=== PATIENT | female | born 1950 | race Asian ===

== ENCOUNTER 2021-07-26 08:35 | Inpatient (IN) | payer MEDICARE, OTHER ==
[~2021-07-26] VITALS: Ht 144.8 cm; Wt 49.9 kg
[2021-07-26] VITALS (42 sets, daily range): BP systolic 36–166; BP diastolic 18–111
[2021-07-26] MEDS ORDERED: VALP250S4 GT (08:56)
[2021-07-26] MEDS ORDERED: ACET-868 GT ×2 (08:56)
[2021-07-26] MEDS ORDERED: DOCU250C14 GT (08:56)
[2021-07-26] MEDS ORDERED: ATOR10TA GT (08:56)
[2021-07-26] MEDS ORDERED: MAG30ORA GT (08:56)
[2021-07-26] MEDS ORDERED: IPRA0.2S9 IH (08:56)
[2021-07-26] MEDS ORDERED: LANS30CA56 GT (08:56)
[2021-07-26] MEDS ORDERED: NUT.237L67 GT (08:56)
[2021-07-26] MEDS ORDERED: LORA10TA7 GT (08:56)
[2021-07-26] MEDS ORDERED: ALBU2.5V38 IH (08:56)
[2021-07-26] MEDS ORDERED: ASCO-352 GT (08:56)
[2021-07-26] MEDS ORDERED: MULT-447 GT (08:56)
[2021-07-26] MEDS ORDERED: QUET25TA GT (08:56)
[2021-07-26] MEDS ORDERED: MAGN400O6 GT (08:56)
[2021-07-26] MEDS ORDERED: FLUT16SP (08:56)
[2021-07-26] MEDS ORDERED: CHOL100062 PO (08:56)
[2021-07-26] MEDS ORDERED: BISA10SU11 RC (08:56)
[2021-07-26] MEDS ORDERED: MEMA10TA GT (08:56)
[2021-07-26] MEDS ORDERED: VANCOMYCIN 1 GM in IV D5W 250 ML IV ONE (09:00)
[2021-07-26] MEDS ORDERED: IV NS 0.9% 2,000 ML IV ONE (09:00)
[2021-07-26] MEDS ORDERED: PIPERACILLIN /TAZOBACTAM 3.375 G in IV D5W 50 ML IV ONE (09:00)
--- NOTE | 2021-07-26 09:00 | NUR ---
Mel from care facility, fever/low bp and low 02 sat noted by staff. Connected to the monitor and pulse ox. Kept comfortable, will continue to monitor accordingly.
--- NOTE | 2021-07-26 09:02 | NUR ---
MOVE SHEET SUBMITTED AND CALLED FOR TELE BED.
[2021-07-26 09:12] LABS: BILIRUBIN,URINE SMALL (NEGATIVE); COLOR,URINE YELLOW (YELLOW); LEUKOCYTE ESTERASE ,URINE Moderate (NEGATIVE); NITRITE, URINE Negative (NEGATIVE); PH,URINE 5.5 (5.0-8.0); PROTEIN,URINE 30 mg/dl (NEGATIVE); UGLUCOSE Negative (NEGATIVE); UROBILINOGEN,URINE 0.2 EU/dL (0.2)
--- NOTE | 2021-07-26 09:25 | NUR ---
ABNORMAL LAB RESULTS: LACTIC ACID - 2.1; TROP- 0.806 DR. GILLETTE IS AWARE
[2021-07-26 09:26] LABS: BACTERIA,URINE 2+ /HPF (None Seen); RBC,URINE 21-50 /HPF (0-2); SQUAMOUS EPITHELIAL CELL,UR Few /HPF (None Seen); WBC,URINE 51-80 /HPF (0-3)
[2021-07-26 09:28] LABS: ALANINE AMINOTRANSFERASE 90 U/L (12-78); ALKALINE PHOSPHATASE 60 U/L (46-116); ASPARTATE AMINOTRANSFERASE 98 U/L (15-37); BILIRUBIN,DIRECT 0.1 mg/dL (0.0-0.2); BILIRUBIN,TOTAL 0.2 mg/dL (0.2-1.0); CALCIUM, SERUM 6.6 mg/dL (8.5-10.1); CARBON DIOXIDE 21 mmol/L (21-32); GLUCOSE 159 mg/dL (74-106); POTASSIUM 3.3 mmol/L (3.5-5.1); TOTAL PROTEIN, SERUM 5.8 g/dL (6.4-8.2)
[2021-07-26 09:31] LABS: ALBUMIN 1.3 g/dL (3.4-5.0); CHLORIDE 133 mmol/L (98-107); SODIUM SERUM 166 mmol/L (136-145); UREA NITROGEN, BLOOD 116 mg/dL (7-18)
--- NOTE | 2021-07-26 09:31 | NUR ---
LAB CALLED DR. GILLETTE INFORMED SODIUM 166 CHLORIDE 133 BUN 116 ALBUMIN 1.3
[2021-07-26 09:38] LABS: BASOPHILS % (AUTO) 0.5 % (0.0-2.0); EOSINOPHILS % (AUTO) 0.1 % (0.0-6.0); HEMATOCRIT 27 % (33-45); HEMOGLOBIN 8.7 g/dL (11.5-14.8); LYMPHOCYTES # (AUTO) 1.4 K/uL (0.8-4.8); LYMPHOCYTES % (AUTO) 16.3 % (20.0-44.0); MEAN CORPUSCULAR HGB CONC 32 g/dl (31.0-36.0); MEAN CORPUSCULAR VOLUME 101 fL (82-100); MONOCYTES # (AUTO) 0.6 K/uL (0.1-1.30); MONOCYTES % (AUTO) 7.2 % (2.0-12.0); NEUTROPHILS # (AUTO) 6.4 K/uL (1.8-8.9); NEUTROPHILS % (AUTO) 75.9 % (43.0-81.0); PLATELET COUNT (AUTO) 236 K/uL (150-450); RED BLOOD CELL COUNT(AUTO) 2.72 MIL/uL (4.0-5.2); WHITE BLOOD COUNT (AUTO) 8.5 K/uL (4.3-11.0)
[2021-07-26] MEDS ORDERED: ENOXAPARIN SODIUM 40 MG/0.4 ML DISP.SYRIN SQ ONE ×2 (09:40→10:00)
[2021-07-26 10:03] LABS: D-DIMER 2.08 mg/L(FEU (0.17-0.50)
[2021-07-26] MEDS ORDERED: NOREPINEPHRINE 8 MG in IV NS 0.9% 250 ML IV ONE (10:30)
[2021-07-26 10:38] LABS: CREATINE KINASE, TOTAL 687 U/L (26-192); FERRITIN 3239 ng/mL (8-388)
[2021-07-26 10:47] LABS: C-REACTIVE PROTEIN 16.3 mg/dL (0.0-0.9)
--- NOTE | 2021-07-26 11:41 | NUR ---
[facility] CALLED PUBLIC INFORMATION COORDINATOR PAGED.
--- NOTE | 2021-07-26 14:47 | NUR ---
report given to Gia MONSIVAIS for yaakov.
[2021-07-26] MEDS ORDERED: Z GUARD REMEDY 2 OZ OINT TP PRN (15:00)
[2021-07-26] MEDS ORDERED: ONDANSETRON HCL/PF 4 MG/2 ML VIAL IVP PRN (15:00)
[2021-07-26] MEDS ORDERED: ACETAMINOPHEN 650 MG/SUPP.RECT RC PRN (15:00)
[2021-07-26] MEDS ORDERED: NOREPINEPHRINE 32 MG in IV NS 0.9% 218 ML IV PRN (15:00)
--- NOTE | 2021-07-26 15:10 | NUR ---
RN NOTES PATIENT ADMITTED FROM ER 70Y/OLD FEMALE ON DX OF SEPTIC SHOCK, UTI, LEW, HYPERNATREMIA. Patient confused contracted, t-99.7F. patient on Levophed drip 0.4 mcg/kg/hr. patient has RIJ three lumen catheter, flashing well, and RAC #318G. intact. [place] draining poor output. skin assessment done , picture taken, wound consult triggered. patient has gt intact. patient total care. assist turn and reposition q 2 hr. will follow up.
--- NOTE | 2021-07-26 15:18 | NUR ---
wheeled patient via gurney accompanied by RN adn emt in no distress. RN assigned at bedside to assume care.
[2021-07-26] MEDS: IV D5/0.45 NACL 1,000 ML IV PRN (15:46)
[2021-07-26] MEDS: NOREPINEPHRINE 32 MG in IV NS 0.9% 218 ML IV PRN (16:11)
[2021-07-26] MEDS ORDERED: PHENYLEPHRINE 100 MG in IV NS 0.9% 240 ML IV PRN (16:30)
[2021-07-26 16:54] LABS: ABG BASE EXCESS -7.3 mmol/L; ABG OXYGEN SATURATION 98.5 % (92.0-98.5); ABG PCO2 21.8 mmHg (35.0-45.0); ABG PH 7.456 (7.350-7.450); ABG PO2 137.5 mmHg (75.0-100.0); AaDO2 338.2 mmHg; COHb 0.3 % (0.5-1.5); MetHb 0.1 % (0.0-1.5); O2Hb 98.1 % (94.0-97.0); SITE, ABG Right Radial; VENT MODE, BG 8L SIMPLE MASK
--- NOTE | 2021-07-26 17:07 | NUR ---
rn notes administered Tylenol suppository T-99.7F. seen sign language teacher, KATIA US done.,
--- NOTE | 2021-07-26 17:29 | NUR ---
rn notes RECHECKED T-102.3F, GET ORDER BLOOD CULTURE X2 . TYLENOL RECTAL SUPPOSITORY, AND COOLING MEASURE.
--- NOTE | 2021-07-26 19:18 | NUR ---
RN NOTES TEMPERATURE RECHECKED 99F, ECHO IS DONE EF-60%, PATIENT STILL CONFUSED, CONTRACTED,. QUADRIPLEGIC, . PATIENT ON SIMPLE MASK 12L AFTER ABG RESULT. COELLO HAS 275ML OF OUTPUT. RIJ INFUSING LEVOPHED 1MCG/KG/HR, AND D51/2 NS @75ML INTACT. NO ACUTE RESPIRATORY DISTRESS. ENDORSED ONCOMING NURSE MAVERICK.
--- NOTE | 2021-07-26 19:30 | NUR ---
RN NOTE PATIENT IN BED AWAKE, NON VERBAL. ON SIMPLE MASK @ 10L O2, O2 SAT 92-98%. SO SIGNS OF ANY RESPIRATORY DISTRESS. NOTED WITH COELLO CATH, DRAINING URINE VIA GRAVITY. GTUBE INTACT AND CLAMPED. WITH LEVO @ 1MCG/KG/MIN AND D5 1/2 NS @ 75ML/HR INFUSING IN RIGHT IJ #18. NO SIGNS OF INFILTRATION. RIGHT AC #18 PATENT AND INTACT. BED LOCKED AND IN LOWEST POSITION. CALL LIGHT WITHIN REACH. ALL NEEDS ANTICIPATED.
[2021-07-26] MEDS ORDERED: MEROPENEM 500 MG in IV NS 0.9% 50 ML IV SCH (21:00)
[2021-07-26] MEDS: MEROPENEM 1 G in IV NS 0.9% 100 ML IV SCH (21:32)
[2021-07-27] VITALS (93 sets, daily range): BP systolic 58–241; BP diastolic 25–219
--- NOTE | 2021-07-27 01:02 | NUR ---
TITRATED LEVO PER PROTOCOL AND HELD. BLOOD PRESSURE 212/162. CHARGE NURSE JUAN A LEWIS.
--- NOTE | 2021-07-27 02:37 | NUR ---
RN NOTE BLOOD PRESSURE 72/46, RESUMED LEVO INFUSION. CHARGE NURSE JUAN A LEWIS.
[2021-07-27 04:27] LABS: BASOPHILS # (AUTO) 0.1 K/uL (0.0-0.2); BASOPHILS % (AUTO) 0.4 % (0.0-2.0); HEMATOCRIT 29 % (33-45); HEMOGLOBIN 9.5 g/dL (11.5-14.8); LYMPHOCYTES # (AUTO) 1.8 K/uL (0.8-4.8); LYMPHOCYTES % (AUTO) 13.6 % (20.0-44.0); MEAN CORPUSCULAR HGB CONC 33 g/dl (31.0-36.0); MEAN CORPUSCULAR VOLUME 97 fL (82-100); MONOCYTES # (AUTO) 0.3 K/uL (0.1-1.30); MONOCYTES % (AUTO) 2.5 % (2.0-12.0); NEUTROPHILS # (AUTO) 10.9 K/uL (1.8-8.9); NEUTROPHILS % (AUTO) 83.5 % (43.0-81.0); PLATELET COUNT (AUTO) 232 K/uL (150-450); RED BLOOD CELL COUNT(AUTO) 2.98 MIL/uL (4.0-5.2); WHITE BLOOD COUNT (AUTO) 13.1 K/uL (4.3-11.0)
[2021-07-27 04:45] LABS: CHOLESTEROL 68 mg/dL (<200); HDL CHOLESTEROL 19 mg/dL (40-60); LDL 25 mg/dL (0-99); THYROID STIMULATING HORMONE 1.163 uIU/mL (0.358-3.74); TRIGLYCERIDES 115 mg/dL (30-150)
[2021-07-27 04:59] LABS: CALCIUM, SERUM 7.3 mg/dL (8.5-10.1); CARBON DIOXIDE 20 mmol/L (21-32); CREATININE 2.6 mg/dL (0.6-1.3); GLUCOSE 150 mg/dL (74-106); MAGNESIUM 2.8 mg/dL (1.8-2.4); PHOSPHORUS 4.3 mg/dL (2.5-4.9); POTASSIUM 3.4 mmol/L (3.5-5.1)
[2021-07-27 05:11] LABS: CHLORIDE 131 mmol/L (98-107); SODIUM SERUM 166 mmol/L (136-145); UREA NITROGEN, BLOOD 103 mg/dL (7-18)
--- NOTE | 2021-07-27 07:04 | NUR ---
RN NOTE PATIENT IN BED AWAKE, NON VERBAL. ON SIMPLE MASK @ 8L O2, O2 SAT 100%. COELLO CATH, DRAINING URINE VIA GRAVITY OUTPUT 350CC. GTUBE INTACT AND CLAMPED. WITH LEVO @ 0.5MCG/KG/MIN AND D5 1/2 NS @ 75ML/HR INFUSING IN RIGHT IJ #18. NO SIGNS OF INFILTRATION. RIGHT AC #18 PATENT AND INTACT. BED LOCKED AND IN LOWEST POSITION. CALL LIGHT WITHIN REACH. WILL ENDORSE TO AM SHIFT.
--- NOTE | 2021-07-27 07:06 | NUR ---
WOUND CARE CONSULT: REVIEWED CHART, NURSING DOCUMENTATION AND PHOTOS WHICH INDICATE MULTIPLE LOWER EXTREMITY WOUNDS, PRESENT ON ADMISSION. DR RAY TO BE CONSULTED THIS AM FOR DPM CONSULT. RECOMMENDATIONS MADE FOR SKIN PROTECTION. DISCUSSED WITH NURSING STAFF. [facility]. MD IN AGREEMENT WITH PLAN OF CARE.
--- NOTE | 2021-07-27 07:30 | NUR ---
RN NOTES PT FOUND IN SUPINE POSITION DISPLAYING NO S/S OF ACUTE DISTRESS, FLACC = 1 AND BREATHING IS EVEN AND UNLABORED ON 8L O2 SIMPLE MASK. PT IS UNABLE TO COMMUNICATE NEEDS, APPEARS TO BE LAYING COMFORTABLY. COELLO CATH IS BELOW PATIENT, INTACT AND DRAINING BY GRAVITY. R IJ 18G, R AC 18G, CLEAN, DRY, INTACT AND PATIENT. PEG OBSERVED, CURRENTLY CLAMPED. VSS, RN WILL TREAT AND MONITOR THROUGHOUT SHIFT. SAFETY MEASURES IN PLACE, BED LOCKED AND IN LOWEST POSITION, SIDE RAILS UPX2, CALL LIGHT WITHIN REACH, BED ALARM ARMED.
[2021-07-27] MEDS: MEROPENEM 1 G in IV NS 0.9% 100 ML IV SCH ×2 (09:10→20:40)
[2021-07-27] MEDS: PANTOPRAZOLE 40 MG VIAL IV SCH (09:10)
[2021-07-27] MEDS: IV D5/0.45 NACL 1,000 ML IV PRN (09:19)
[2021-07-27] MEDS: NOREPINEPHRINE 32 MG in IV NS 0.9% 218 ML IV PRN (09:53)
--- NOTE | 2021-07-27 19:50 | NUR ---
RN OPENING NOTES RECD PT IN BED, AWAKE, PT CONFUSED, GARBLED UNCLEAR SPEECH, ON 8L OF O2 VIA SIMPLE MASK O2 SAT 98, BREATHING AND UNLABORED. PT AT THIS TIME PRESENTS WITH SINUS TACH ON TELE MONITOR HR OF 103. GTUBE PRESENTS FLUSHED, AUSCULTATED FOR PLACEMENT, 0 RESIDUAL. IV SITE RIJ FLUSHED WITH GOOD BLOOD RETURN, AND RAC #20 PT HAS COELLO CATH DRAINING VIA GRAVITY. SAFETY MEASURES IN PLACE HOB ELEVATED. SIDE RAILS UP X2 BED LOCKED IN LOWEST POSITION WITH BED ALARM ON.
[2021-07-27] MEDS: IV D5/ 0.9% NACL 1,000 ML IV PRN (21:30)
[2021-07-28] VITALS (104 sets, daily range): BP systolic 71–153; BP diastolic 23–89
[2021-07-28 04:33] LABS: BASOPHILS % (AUTO) 0.3 % (0.0-2.0); EOSINOPHILS % (AUTO) 1.1 % (0.0-6.0); HEMATOCRIT 24 % (33-45); HEMOGLOBIN 7.7 g/dL (11.5-14.8); LYMPHOCYTES # (AUTO) 1.4 K/uL (0.8-4.8); LYMPHOCYTES % (AUTO) 10.4 % (20.0-44.0); MEAN CORPUSCULAR HGB CONC 32 g/dl (31.0-36.0); MEAN CORPUSCULAR VOLUME 99 fL (82-100); MONOCYTES # (AUTO) 0.3 K/uL (0.1-1.30); NEUTROPHILS # (AUTO) 11.4 K/uL (1.8-8.9); NEUTROPHILS % (AUTO) 86.2 % (43.0-81.0); PLATELET COUNT (AUTO) 222 K/uL (150-450); RED BLOOD CELL COUNT(AUTO) 2.43 MIL/uL (4.0-5.2); WHITE BLOOD COUNT (AUTO) 13.2 K/uL (4.3-11.0)
[2021-07-28 04:47] LABS: ALANINE AMINOTRANSFERASE 75 U/L (12-78); ALKALINE PHOSPHATASE 100 U/L (46-116); ASPARTATE AMINOTRANSFERASE 77 U/L (15-37); BILIRUBIN,TOTAL 0.2 mg/dL (0.2-1.0); CALCIUM, SERUM 7.5 mg/dL (8.5-10.1); CARBON DIOXIDE 24 mmol/L (21-32); CREATININE 1.9 mg/dL (0.6-1.3); GLUCOSE 126 mg/dL (74-106); MAGNESIUM 2.8 mg/dL (1.8-2.4); PHOSPHORUS 3.4 mg/dL (2.5-4.9); POTASSIUM 3.4 mmol/L (3.5-5.1); TOTAL PROTEIN, SERUM 5.7 g/dL (6.4-8.2); UREA NITROGEN, BLOOD 70 mg/dL (7-18)
[2021-07-28 04:59] LABS: ALBUMIN 1.3 g/dL (3.4-5.0); CHLORIDE 135 mmol/L (98-107); SODIUM SERUM 168 mmol/L (136-145)
--- NOTE | 2021-07-28 06:37 | NUR ---
RN CLOSING NOTE NO SIGNIFICANT CHANGE IN PT CONDITION. PT REMAINS ON 8L OF O2 VIA SIMPLE MASK. TOLERATING WELL. O2 SAT IS 97% BREATHING EVEN AND UNLABORED. NO RESP DISTRESS OR SOB NOTED. PT REMAINS WITH SR 80-90S BASELINE HR, OCCASIONAL PERIODS OF TACHY 100S. LEVOPHED RUNNING AT 0.04 MCG/KG/MIN TITRATING PT SBP >90 ORDERED. BED BATH WOUND CARE ORAL CARE RENDERED. SAFETY MEASURES IN PLACE. HOB ELEVATED, SIDE RAILS UP X3 BED LOCKED IN LOWEST POSITION. WILL CONT TO MONITOR PT UNTIL END OF SHIFT. WILL ENDORSE TO DAY SHIFT RN FOR CONTINUATION OF CARE.
--- NOTE | 2021-07-28 07:30 | NUR ---
RN OPENING NOTE PT IN BED SEMIFOWLERS ON SIMPLE MASK 8L, SPO2 100%, NO S/S OF RESP DISTRESS. PT NSR/TACHY 90s-100s. PT UNABLE TO SPEAK CLEARLY WITH GARBLED SPEECH NOR UNDERSTANDS CONCEPTS, PT ON BILAT SOFT WRIST RESTRAINTS D/T REMOVING LINES/TUBING, BILAT CMS INTACT. PT RIJ TRIPLE LUMEN INFUSING D5NS @ 100ML/HR AND LEVO @ 0.04 MCG/KG/MIN, RAC #18 SL, BOTH FLUSHED AND INTACT WITH NO S/S OF INFECTION OR INFILTRATION. PT GTUBE CLAMPED, AUSCULTATED FOR POSITIVE PLACEMENT, FLUSHED WITH 0 RESIDUALS, INTACT. PT COELLO CATH DRAINING CLEAR YELLOW URINE TO GRAVITY. PT BLE CONTRACTED. ALL PT SAFETY PRECAUTIONS IN PLACE, WILL CONT TO MONITOR
[2021-07-28] MEDS: PANTOPRAZOLE 40 MG VIAL IV SCH (08:45)
[2021-07-28] MEDS: IV D5/ 0.9% NACL 1,000 ML IV PRN (08:57)
[2021-07-28] MEDS ORDERED: VANCOMYCIN 500 MG in IV D5W 100 ML IV SCH (09:00)
[2021-07-28] MEDS: MEROPENEM 1 G in IV NS 0.9% 100 ML IV SCH ×2 (09:15→20:51)
[2021-07-28] MEDS: NOREPINEPHRINE 8 MG in IV NS 0.9% 250ML IV PRN ×2 (10:46→23:44)
[2021-07-28] MEDS: IV D5W 1,000 ML IV PRN ×2 (10:56→21:53)
--- NOTE | 2021-07-28 11:00 | NUR ---
RN NOTE DR MACIAS AWARE OF NA 168 AND CL 135
[2021-07-28] MEDS ORDERED: POTASSIUM CL. PREMIX PERIPHER. 50 ML IV SCH (11:30)
[2021-07-28] MEDS: JEVITY 1.2 CAL 1,000 ML BOTTLE GT SCH (17:32)
--- NOTE | 2021-07-28 18:50 | NUR ---
INVESTMENT PROFESSIONAL CLOSING NOTE PT NOW BREATHING RA SPO2 96%. PT OFF OF LEVO SINCE 1330, BP CURRENTLY 108/61. PT RUNNING D5W @ 100 ML/HR AND JEVITY 1.2 @ 20 ML/HR, GOAL RATE OF 40 ML/HR. NEW ORDER OF 100 ML FREE WATER FLUSH Q4H FOR GT. NO OTHER CHANGES TO PT DURING SHIFT, ALL PT SAFET PRECAUTIONS IN PLACE, WILL ENDORSE MAVERICK TO ONCOMING NURSE
--- NOTE | 2021-07-28 19:00 | NUR ---
RN NOTE RECEIVED PATIENT IN BED, CONFUSED, IN NO S/SX OF ACUTE DISTRESS AT THIS TIME, BREATHING EVEN AND UNLABORED, SATURATION AT 100% ON ROOM AIR, ST ON THE MONITOR, HR IS 107. NOTED TLC AT R IJ, ALL HUBS PATENT AND FLUSHING WELL, NO S/S OF INFECTION OR INFILTRATION, WITH D5W INFUSING AT 100 ML/HR. PEG TUBE IN PLACE, POSITIVE PLACEMENT, NO RESIDUAL NOTED, WITH TUBE FEEDING OF JEVITY 1.2 AT 20 ML/HR. COELLO CATHETER CONNECTED TO URINE BAG IN PLACE, DRAINING TO A CLOUDY, YELLOW OUTPUT. SAFETY MEASURES IMPLEMENTED. PATIENT BED ALARM IS ON. HEAD OF BED ELEVATED. BED IS LOCKED, IN LOWEST POSITION AND SIDE RAILS UP. CALL LIGHT WITHIN REACH OF THE PATIENT. WILL CONTINUE TO MONITOR AND REASSESS FOR ANY CHANGES.
[2021-07-28] MEDS ORDERED: NOREPINEPHRINE 8MG/250ML RTU 250 ML IV ONE (23:41)
[2021-07-29] VITALS (100 sets, daily range): BP systolic 56–144; BP diastolic 34–87
[2021-07-29 04:23] LABS: BASOPHILS % (AUTO) 0.1 % (0.0-2.0); EOSINOPHILS % (AUTO) 1.7 % (0.0-6.0); HEMATOCRIT 24 % (33-45); HEMOGLOBIN 7.7 g/dL (11.5-14.8); LYMPHOCYTES # (AUTO) 1.3 K/uL (0.8-4.8); LYMPHOCYTES % (AUTO) 8.2 % (20.0-44.0); MEAN CORPUSCULAR HGB CONC 32 g/dl (31.0-36.0); MEAN CORPUSCULAR VOLUME 98 fL (82-100); MONOCYTES # (AUTO) 0.2 K/uL (0.1-1.30); MONOCYTES % (AUTO) 1.3 % (2.0-12.0); NEUTROPHILS # (AUTO) 13.8 K/uL (1.8-8.9); NEUTROPHILS % (AUTO) 88.7 % (43.0-81.0); PLATELET COUNT (AUTO) 259 K/uL (150-450); RED BLOOD CELL COUNT(AUTO) 2.46 MIL/uL (4.0-5.2); WHITE BLOOD COUNT (AUTO) 15.5 K/uL (4.3-11.0)
[2021-07-29 04:34] LABS: ALANINE AMINOTRANSFERASE 81 U/L (12-78); ALKALINE PHOSPHATASE 124 U/L (46-116); ASPARTATE AMINOTRANSFERASE 81 U/L (15-37); BILIRUBIN,TOTAL 0.2 mg/dL (0.2-1.0); CALCIUM, SERUM 7.4 mg/dL (8.5-10.1); CARBON DIOXIDE 21 mmol/L (21-32); CREATININE 1.5 mg/dL (0.6-1.3); GLUCOSE 151 mg/dL (74-106); MAGNESIUM 2.5 mg/dL (1.8-2.4); TOTAL PROTEIN, SERUM 5.6 g/dL (6.4-8.2); UREA NITROGEN, BLOOD 45 mg/dL (7-18)
[2021-07-29 05:05] LABS: CHLORIDE 127 mmol/L (98-107); SODIUM SERUM 159 mmol/L (136-145)
--- NOTE | 2021-07-29 05:05 | NUR ---
RN NOTE TELEPHONE CALL FROM CHHAYA OF LAB, RELAYED CRITICAL LAB FOLLOWS: NA 159, K 2.8, CHLORIDE 127, ALBUMIN 1.3. DR ROSS WAS NOTIFIED, ORDERS RECEIVED FOR KCL 20 MEQ IV, AND KCL TAB 60 MEQ VIA GTUBE. HVAC DESIGN MECHANICAL ENGINEER CHEN MADE AWARE
[2021-07-29 05:06] LABS: ALBUMIN 1.3 g/dL (3.4-5.0); POTASSIUM 2.8 mmol/L (3.5-5.1)
--- NOTE | 2021-07-29 05:40 | NUR ---
RN NOTE TELEPHONE CALL TO [facility] TO VERIFY ORDER FOR KCL 20 MEQ IV, AND KCL TAB 60 MEQ VIA GTUBE. NO ANSWER AFTER TWO ATTEMPTS
[2021-07-29] MEDS ORDERED: POTASSIUM CHLORIDE 10 MEQ TABLET.SA PO ONE (06:00)
[2021-07-29] MEDS: POTASSIUM CL. PREMIX PERIPHER. 50 ML IV SCH ×2 (06:20→07:23)
--- NOTE | 2021-07-29 07:30 | NUR ---
OPENING NOTE: REPORT RECEIVED FROM ESTRELLA MONSIVAIS. PT AWAKE, CONFUSED AND UNCOOPERATIVE. PT IN RESTRAINTS D/T ATTEMPTING TO PULL OUT LINES AND TUBES. COELLO CATHETER DRAINING WITHOUT DIFFICULTY. TUBE FEEDING INFUSING AT 40ML/HR, GOAL RATE WITHOUT DIFFICULTY. LEVOPHED GTT TITRATED TO KEEP MAY >65, CURRENTLY INFUSING AT 0.1 MCG/KG/MIN. PT CHECKED ON HOURLY AND PRN BY NURSING STAFF.
[2021-07-29] MEDS: PANTOPRAZOLE 40 MG VIAL IV SCH (09:07)
[2021-07-29] MEDS: MEROPENEM 1 G in IV NS 0.9% 100 ML IV SCH ×2 (09:07→21:00)
[2021-07-29] MEDS: IV D5W 1,000 ML IV PRN ×2 (09:26→19:38)
[2021-07-29] MEDS: NOREPINEPHRINE 8 MG in IV NS 0.9% 242 ML IV PRN (11:34)
[2021-07-29] MEDS ORDERED: Sodium Phosphate 15 MMOL in IV NS 0.9% 250 ML IV SCH (16:00)
--- NOTE | 2021-07-29 18:22 | NUR ---
END OF SHIFT NOTE: PT HAD AN UNEVENTFUL SHIFT. 1 LARGE LIQUID BM NOTED THIS SHIFT. TUBE FEEDING INFUSING AT GOAL RATE OF 40ML/HR. LEVOPHED TITRATED PER MD ORDERS DOWN TO 0.08 MCG/KG/MIN. PT BECOMES SLIGHTLY COMBATIVE WHEN CLEANING HER UP. PT PT CHECKED ON HOURLY AND PRN BY NURSING STAFF.
--- NOTE | 2021-07-29 20:00 | NUR ---
ICU NOTES Received patient awake but confused with bilateral soft wrist restraints in place D/T pulling out tubes and lines.Restraint protocol implemented.SR/ST low 100's.Levophed gtt infusing for BP support and will titrate accordingly.Breathing even and unlabored.Saturation 100% on RA. Tolerating GT feeding well infusing at 40 ml/hr no residual noted.Will maintain HOB elevated. NA 159 free water flush 100 Q 4hrs per GT.FC to gravity.Turned and repositioned.No acute distress noted.
[2021-07-29] MEDS: IV NS 0.9% 250 ML IV PRN (21:03)
[2021-07-30] VITALS (91 sets, daily range): BP systolic 90–156; BP diastolic 35–101
[2021-07-30] MEDS: IV D5W 1,000 ML IV PRN (04:51)
[2021-07-30 05:51] LABS: BASOPHILS % (AUTO) 0.1 % (0.0-2.0); EOSINOPHILS % (AUTO) 1.5 % (0.0-6.0); HEMATOCRIT 21 % (33-45); LYMPHOCYTES # (AUTO) 1.5 K/uL (0.8-4.8); LYMPHOCYTES % (AUTO) 12.8 % (20.0-44.0); MEAN CORPUSCULAR HGB CONC 32 g/dl (31.0-36.0); MEAN CORPUSCULAR VOLUME 98 fL (82-100); MONOCYTES # (AUTO) 0.4 K/uL (0.1-1.30); MONOCYTES % (AUTO) 3.5 % (2.0-12.0); NEUTROPHILS # (AUTO) 9.8 K/uL (1.8-8.9); NEUTROPHILS % (AUTO) 82.1 % (43.0-81.0); PLATELET COUNT (AUTO) 235 K/uL (150-450); RED BLOOD CELL COUNT(AUTO) 2.17 MIL/uL (4.0-5.2); WHITE BLOOD COUNT (AUTO) 11.9 K/uL (4.3-11.0)
[2021-07-30 06:09] LABS: ALANINE AMINOTRANSFERASE 67 U/L (12-78); ALKALINE PHOSPHATASE 128 U/L (46-116); ASPARTATE AMINOTRANSFERASE 70 U/L (15-37); BILIRUBIN,TOTAL 0.2 mg/dL (0.2-1.0); CALCIUM, SERUM 7.1 mg/dL (8.5-10.1); CARBON DIOXIDE 19 mmol/L (21-32); CHLORIDE 116 mmol/L (98-107); CREATININE 1.2 mg/dL (0.6-1.3); GLUCOSE 126 mg/dL (74-106); MAGNESIUM 1.9 mg/dL (1.8-2.4); PHOSPHORUS 2.7 mg/dL (2.5-4.9); POTASSIUM 4.1 mmol/L (3.5-5.1); SODIUM SERUM 144 mmol/L (136-145); TOTAL PROTEIN, SERUM 5.1 g/dL (6.4-8.2); UREA NITROGEN, BLOOD 28 mg/dL (7-18)
[2021-07-30 06:12] LABS: ALBUMIN 1.2 g/dL (3.4-5.0)
[2021-07-30] MEDS: JEVITY 1.2 CAL 1,000 ML BOTTLE GT SCH (06:41)
--- NOTE | 2021-07-30 06:50 | NUR ---
ICU NOTES Patient resting in no acute distress.Stable vital signs.Continue on Levophed gtt at 0.07 mcg. to keep MAP >65.SR/ST.Tolerating gt feeding no residual noted.Had 2 BM pasty brown.Kept clean and dry.AM care done.Turned and repositioned q 2 hrs off loading pressure points.No significant changes noted during the shift.
[2021-07-30 07:10] LABS: HEMOGLOBIN 6.9 g/dL (11.5-14.8)
--- NOTE | 2021-07-30 08:00 | NUR ---
RN NOTE: PT RECEIVED ALERT AWAKE, NON VERBAL. ON RA, NO BREATHING DISTRESS NOTED. NO S/S OF PAIN & DISCOMFORT NOTED AT THIS TIME. ASPIRATION PRECAUTIONS OBSERVED. TUBE FEEDING RUNNING ORDERED, NO RESIDUAL NOTED. IV CATH INTACT, CLEAN & DRY, RUNNING WITH IV FLUIDS ORDERED. LEVO GTT RUNNING AT 0.07MCG/MIN. BILATERAL SOFT WRIST RESTRAINTS ON. SKIN ASSESSMENT DONE. NOTED PT ATTEMPTED TO PULL OUT G-TUBE & IV LINES DURING ASSESSMENT/OFF RESTRAINTS. SAFETY MEASURES OBSERVED. CONTINUE TO MONITOR.
[2021-07-30] MEDS: MEROPENEM 1 G in IV NS 0.9% 100 ML IV SCH ×2 (08:26→21:00)
[2021-07-30] MEDS: PANTOPRAZOLE 40 MG/PACK PACK GT SCH (08:29)
--- NOTE | 2021-07-30 09:30 | NUR ---
RN NOTE: RECEIVED CALL FROM LAB REGARDING HGB 6.9. NO EPISODE OF ACTIVE BLEEDING NOTED. CALLED [facility]. HARSH XIAO CALLED BACK, ADVISED TO CALL DR. MACIAS. MESSAGE RELAYED TO DR. MACIAS, RECEIVED NEW ORDER TO TRANSFUSE 1 UNIT OF PRBC. ORDERS NOTED & CARRIED OUT. CALLED EMERGENCY CONTACT NUMBERS X3, UNABLE TO REACH AT THIS TIME.
[2021-07-30 11:14] LABS: EOSINOPHILS % (MANUAL) 1 % (0-4); LYMPHOCYTES % (MANUAL) 16 % (16-48); MONOCYTES % (MANUAL) 3 % (0-11.0); NEUTROPHILS % (MANUAL) 80 (42-76)
[2021-07-30] MEDS: NOREPINEPHRINE 8 MG in IV NS 0.9% 242 ML IV PRN (11:38)
[2021-07-30] MEDS: IV NS 0.9% 1,000 ML IV PRN (13:59)
--- NOTE | 2021-07-30 17:30 | NUR ---
RN NOTE: 1UNIT PRBC TRANSFUSED. NO ADVERSE REACTION NOTED. CONTINUE TO MONITOR.
--- NOTE | 2021-07-30 19:00 | NUR ---
RN NOTE: BEDSIDE REPORT GIVEN TO PM SHIFT FOR CONTINUITY OF CARE.
--- NOTE | 2021-07-30 20:00 | NUR ---
ICU NOTES Received patient resting in no acute distress.Respiration even and unlabored.ST 108 with ongoing Levophed gtt for BP support infusing and will titrate accordingly.Tolerating GT feeding no residual noted.Aspiration precaution implemented.Will maintain HOB elevated.IVF infusing well.FC to gravity. Turned and repositioned to comfort.
[2021-07-31] VITALS (62 sets, daily range): BP systolic 84–159; BP diastolic 39–86
[2021-07-31] MEDS: IV NS 0.9% 1,000 ML IV PRN ×2 (02:43→15:28)
[2021-07-31 05:27] LABS: BASOPHILS % (AUTO) 0.1 % (0.0-2.0); EOSINOPHILS % (AUTO) 1.5 % (0.0-6.0); HEMATOCRIT 26 % (33-45); HEMOGLOBIN 8.7 g/dL (11.5-14.8); LYMPHOCYTES # (AUTO) 1.5 K/uL (0.8-4.8); LYMPHOCYTES % (AUTO) 12.2 % (20.0-44.0); MEAN CORPUSCULAR HGB CONC 33 g/dl (31.0-36.0); MEAN CORPUSCULAR VOLUME 93 fL (82-100); MONOCYTES # (AUTO) 0.6 K/uL (0.1-1.30); MONOCYTES % (AUTO) 5.2 % (2.0-12.0); NEUTROPHILS # (AUTO) 9.6 K/uL (1.8-8.9); PLATELET COUNT (AUTO) 226 K/uL (150-450); RED BLOOD CELL COUNT(AUTO) 2.79 MIL/uL (4.0-5.2); WHITE BLOOD COUNT (AUTO) 11.9 K/uL (4.3-11.0)
[2021-07-31 05:28] LABS: ALANINE AMINOTRANSFERASE 59 U/L (12-78); ALKALINE PHOSPHATASE 118 U/L (46-116); ASPARTATE AMINOTRANSFERASE 59 U/L (15-37); BILIRUBIN,TOTAL 0.3 mg/dL (0.2-1.0); CALCIUM, SERUM 7.3 mg/dL (8.5-10.1); CARBON DIOXIDE 19 mmol/L (21-32); CHLORIDE 113 mmol/L (98-107); GLUCOSE 121 mg/dL (74-106); MAGNESIUM 1.9 mg/dL (1.8-2.4); PHOSPHORUS 2.9 mg/dL (2.5-4.9); POTASSIUM 3.9 mmol/L (3.5-5.1); SODIUM SERUM 143 mmol/L (136-145); UREA NITROGEN, BLOOD 21 mg/dL (7-18)
[2021-07-31 05:47] LABS: ALBUMIN 1.1 g/dL (3.4-5.0)
--- NOTE | 2021-07-31 06:20 | NUR ---
Patient resting in no acute distress BP remains unstable continue Levophed gtt at low dose. BM x1.Kept clean and dry.Tolerating GT feeding.Lab called for abnormal lab result.Paged awaiting for orders.Turned and repositioned.
[2021-07-31] MEDS: JEVITY 1.2 CAL 1,000 ML BOTTLE GT SCH (09:59)
[2021-07-31] MEDS: PANTOPRAZOLE 40 MG/PACK PACK GT SCH (09:59)
[2021-07-31] MEDS: MEROPENEM 1 G in IV NS 0.9% 100 ML IV SCH ×2 (09:59→20:41)
--- NOTE | 2021-07-31 19:00 | NUR ---
COATING AND EMBOSSING UNIT OPERATOR NOTE RECEIVED PATIENT IN BED RESTING OPEN EYES NON VERBAL ON ROOM AIR O2:95% IV SITE IS ON RIGHT IJ THREE LUMEN CATH INTACT PATENT ON LEVOPHED 0.03 MCG/KG/MIN ON IV HYDRATION NS 60CC/HR ON G-TUBE FEEDING JEVITY 1.2 60CC/HR CHECKED PLACEMENT IN PLACE NO RESIDUAL NOTED,COELLO CATHETER IN PLACE URINE DRAINING YELLOW AND CLEAR BY GRAVITY,SOFT BILATERAL WRIST RESTRAIN IN PLACE WILL CHECK EVERY 2HOURS FOR SKIN BREAK DOWN AND CIRCULATION,SAFETY MEASURE IMPLEMENT,HEAD OF THE BED ELEVATED,BED IN LOW POSITION AND LOCKED CONTINUE TO MONITOR
[2021-08-01] VITALS (76 sets, daily range): BP systolic 72–142; BP diastolic 31–104
[2021-08-01] MEDS: ACETAMINOPHEN 650 MG/20.3 ML UDC NG PRN ×2 (03:17→12:42)
[2021-08-01] MEDS: IV NS 0.9% 250 ML IV PRN (03:41)
[2021-08-01 04:54] LABS: BASOPHILS % (AUTO) 0.2 % (0.0-2.0); EOSINOPHILS % (AUTO) 2.2 % (0.0-6.0); HEMATOCRIT 25 % (33-45); HEMOGLOBIN 8.5 g/dL (11.5-14.8); LYMPHOCYTES # (AUTO) 1.3 K/uL (0.8-4.8); LYMPHOCYTES % (AUTO) 10.9 % (20.0-44.0); MEAN CORPUSCULAR HGB CONC 34 g/dl (31.0-36.0); MEAN CORPUSCULAR VOLUME 93 fL (82-100); MONOCYTES # (AUTO) 0.8 K/uL (0.1-1.30); MONOCYTES % (AUTO) 6.5 % (2.0-12.0); NEUTROPHILS # (AUTO) 9.3 K/uL (1.8-8.9); NEUTROPHILS % (AUTO) 80.2 % (43.0-81.0); PLATELET COUNT (AUTO) 276 K/uL (150-450); RED BLOOD CELL COUNT(AUTO) 2.72 MIL/uL (4.0-5.2); WHITE BLOOD COUNT (AUTO) 11.6 K/uL (4.3-11.0)
[2021-08-01 05:08] LABS: ALANINE AMINOTRANSFERASE 55 U/L (12-78); ALKALINE PHOSPHATASE 109 U/L (46-116); ASPARTATE AMINOTRANSFERASE 50 U/L (15-37); BILIRUBIN,TOTAL 0.3 mg/dL (0.2-1.0); CALCIUM, SERUM 7.3 mg/dL (8.5-10.1); CARBON DIOXIDE 18 mmol/L (21-32); CHLORIDE 115 mmol/L (98-107); CREATININE 1.2 mg/dL (0.6-1.3); GLUCOSE 123 mg/dL (74-106); MAGNESIUM 1.8 mg/dL (1.8-2.4); PHOSPHORUS 3.2 mg/dL (2.5-4.9); POTASSIUM 3.7 mmol/L (3.5-5.1); SODIUM SERUM 144 mmol/L (136-145); UREA NITROGEN, BLOOD 19 mg/dL (7-18)
--- NOTE | 2021-08-01 05:44 | NUR ---
RN NOTE RECEIVED A CALL FROM LAB ALBUMIN IS 1.[address] CODY BURROUGHS,NO NEW ORDER CONTINUE TO MONITOR.
--- NOTE | 2021-08-01 06:46 | NUR ---
ICU NOTE PATIENT REMAINS ON NONVERBAL ON ROOM AIR O2:96% IV SITE IS ON RIGHT IJ INTACT PATENT ON LEVOPHED 0.08MCG/KG/MIN AND IV HYDRATION NS 60CC/HR ALL DUE MEDS GIVEN MD ORDERED KEPT CLEAN AND DRY ALL THE TIME,REPOSITIONED EVERY 2 HOURS SOFT BILATERAL RESTRAIN IN PLACE CHECKED EVERY 2 HOURS ON G-TUBE FEED JEVITY 1.2 50CC/HR HEAD OF THE BED ELEVATED,KEPT COMFORTABLE ENDORSE NEXT COMING SHIFT FOR CONTINUATION OF CARE
--- NOTE | 2021-08-01 07:10 | NUR ---
MORTGAGE FUNDER OPENING NOTE PATIENT ALERT,CONFUSED,ON ROOM AIR SATURATING 96% ,IV SITE IS ON RIGHT IJ INTACT PATENT ON LEVOPHED 0.08MCG/KG/MIN AND IV HYDRATION NS 60CC/HR. PATIENT IS COMBATIVE , SOFT WRIST BILATERAL RESTRAIN IN PLACE ,SKIN CHECK DONE. ON G-TUBE FEED JEVITY 1.2 50CC/HR .RESIDUAL 15CC.SAFETY AND ASPIRATION PRECAUTIONS IN PLACE.BED IS LOW AND IN LOCKED POSITION.CALL LIGHT IN REACH,BED ALARM IS ON .SRX3.WILL CONTINUE TO MONITOR.
[2021-08-01] MEDS: NOREPINEPHRINE 8 MG in IV NS 0.9% 242 ML IV PRN (07:34)
[2021-08-01] MEDS: MEROPENEM 1 G in IV NS 0.9% 100 ML IV SCH ×2 (08:22→20:18)
[2021-08-01] MEDS: PANTOPRAZOLE 40 MG/PACK PACK GT SCH (08:24)
[2021-08-01] MEDS: IV NS 0.9% 1,000 ML IV PRN (08:34)
--- NOTE | 2021-08-01 14:21 | NUR ---
CHARTING DONE ACCIDENTALLY FROM PREVIOUS SHIFT NURSE'S OPEN WINDOW.RE CHARTED UNDER MY NAME.
[2021-08-01] MEDS: JEVITY 1.2 CAL 1,000 ML BOTTLE GT SCH (14:38)
--- NOTE | 2021-08-01 16:26 | NUR ---
SEEN BY ,UPDATED ABOUT PATIENT CONDITION ,MADE AWARE ABOUT SWELLING IN BLE.GOT NEW ORDER TO D/C IVF.NOTED AND CARRIED OUT.
--- NOTE | 2021-08-01 18:14 | NUR ---
CISO CLOSING NOTE PATIENT ALERT UNDERSTAND CONCEPT BUT NOT FOLLOWING AT TIMES COMMANDS,CONFUSED,ON ROOM AIR SATURATING 97% ,SR TO ST ON TELE MONITOR.IV SITE IS ON RIGHT IJ INTACT PATENT WITH TKO.BP IS MAINTAINING ORDERED. PATIENT IS COMBATIVE AND USE BAD LANGUAGE AND WORDS AT TIMES.ON SOFT WRIST BILATERAL RESTRAIN IN PLACE ,SKIN CHECK DONE. ON G-TUBE FEED JEVITY 1.2 50CC/HR .SAFETY AND ASPIRATION PRECAUTIONS IN PLACE.BED IS LOW AND IN LOCKED POSITION.CALL LIGHT IN REACH,BED ALARM IS ON .SRX3.WILL ENDORSE TO PM NURSE FOR MAVERICK.
--- NOTE | 2021-08-01 19:45 | NUR ---
RN OPENING NOTE REC'D PT IN BED SLEEPING, PT OPENS EYES, CONFUSED SPEECH UNCLEAR. ON ROOM AIR, NO DISTRESS NOTED. BREATHING EVEN AND UNLABORED. PT ON TELE MONITOR PRESENTS WITH SINUS TACH SINUS ARRHYTHMIA, PT HAS SOFT DOREEN WRIST RESTRAINTS ON, SKIN CIRCULATION CHECKED. PT HAS GT 0 RESIDUAL, GTF RUNNING AT 50CC/HR ORDERED. PT HAS COELLO CATH PRESENT DRAINING VIA GRAVITY. RIJ FLUSHED ASEPTICALLY. BLOOD RETURN NOTED. LEVO ON HOLD AT THIS TIME, BP WNL AT THIS TIME. SAFETY MEASURES IN PLACE. HOB ELEVATED TOLERATED. SIDE RAILS UP X2 BED LOCKED IN LOWEST POSITION. WILL CONT TO MONITOR.
[2021-08-02] VITALS (37 sets, daily range): BP systolic 86–137; BP diastolic 49–84
[2021-08-02] MEDS: ACETAMINOPHEN 650 MG/20.3 ML UDC NG PRN (03:42)
[2021-08-02] MEDS: IV NS 0.9% 250 ML IV PRN (03:43)
--- NOTE | 2021-08-02 03:43 | NUR ---
YODIT NOTE TYLENOL 650MG ADMIN FOR AX TEMP OF 100.0 WILL CONT TO MONITOR Addendum: 08/02/21 at 0636 by ISABEL BELTRAN RN @ 0440 TEMP RECHECKED FOR READING OF 98.7
[2021-08-02 04:41] LABS: BASOPHILS % (AUTO) 0.2 % (0.0-2.0); EOSINOPHILS % (AUTO) 4.2 % (0.0-6.0); HEMATOCRIT 26 % (33-45); HEMOGLOBIN 8.7 g/dL (11.5-14.8); LYMPHOCYTES # (AUTO) 1.1 K/uL (0.8-4.8); LYMPHOCYTES % (AUTO) 11.6 % (20.0-44.0); MEAN CORPUSCULAR HGB CONC 34 g/dl (31.0-36.0); MEAN CORPUSCULAR VOLUME 94 fL (82-100); MONOCYTES # (AUTO) 0.5 K/uL (0.1-1.30); MONOCYTES % (AUTO) 5.5 % (2.0-12.0); NEUTROPHILS # (AUTO) 7.5 K/uL (1.8-8.9); NEUTROPHILS % (AUTO) 78.5 % (43.0-81.0); PLATELET COUNT (AUTO) 363 K/uL (150-450); RED BLOOD CELL COUNT(AUTO) 2.78 MIL/uL (4.0-5.2); WHITE BLOOD COUNT (AUTO) 9.6 K/uL (4.3-11.0)
[2021-08-02 05:00] LABS: ALANINE AMINOTRANSFERASE 54 U/L (12-78); ALKALINE PHOSPHATASE 113 U/L (46-116); ASPARTATE AMINOTRANSFERASE 44 U/L (15-37); BILIRUBIN,TOTAL 0.2 mg/dL (0.2-1.0); CALCIUM, SERUM 7.7 mg/dL (8.5-10.1); CARBON DIOXIDE 20 mmol/L (21-32); CHLORIDE 115 mmol/L (98-107); GLUCOSE 118 mg/dL (74-106); MAGNESIUM 1.9 mg/dL (1.8-2.4); PHOSPHORUS 3.6 mg/dL (2.5-4.9); POTASSIUM 4.3 mmol/L (3.5-5.1); SODIUM SERUM 144 mmol/L (136-145); TOTAL PROTEIN, SERUM 5.3 g/dL (6.4-8.2); UREA NITROGEN, BLOOD 19 mg/dL (7-18)
[2021-08-02 05:24] LABS: ALBUMIN 1.1 g/dL (3.4-5.0)
--- NOTE | 2021-08-02 07:08 | NUR ---
CLINICAL INFORMATICIST OPENING Patient is alert to stimuli, on room air, no respiratory distress, no SOB. HOB on semi-fowlers position, GT feeding Jevity 1.2 @50cc/hr running patent, flushing well. Right IJ Line with clean dressing in place. Soft wrist restraints in place, good capillary refill noted. F/C in place, patent draining urine. Safety precautions implemented, bed locked in lowest position, call light within reach.
--- NOTE | 2021-08-02 07:10 | NUR ---
CEMENTER CLOSING NOTES NO SIGNIFICANT CHANGES IN PT CONDITION. ON ROOM AIR STILL, NO DISTRESS NOTED. NO S/S OF PAIN. PT REMAINS WITH GTF RUNNING. NO BM NOTED. ORAL CARE REINIER CARE BED BATH DONE. WOUND TX DONE. SAFETY MEASURES IN PLACE. ENDORSED TO DAY SHIFT RN FOR CONTINUATION OF CARE
[2021-08-02] MEDS: PANTOPRAZOLE 40 MG/PACK PACK GT SCH (08:36)
[2021-08-02] MEDS: MEROPENEM 1 G in IV NS 0.9% 100 ML IV SCH ×2 (08:36→20:01)
[2021-08-02] MEDS: HYDROCORTISONE SOD SUCCINATE 100 MG/2 ML VIAL IV SCH ×2 (10:46→20:01)
[2021-08-02] MEDS: JEVITY 1.2 CAL 1,000 ML BOTTLE GT SCH (11:41)
--- NOTE | 2021-08-02 18:50 | NUR ---
PUBLIC AFFAIRS OFFICER CLOSING NOTE Patient is alert to stimuli, awake, not oriented still confused per baseline but speaks few words. On room air, no respiratory distress. Enteral feeding running jevity 1.2 @50cc/hr with no residual, Gt patent and flushed with 100cc Q4H as ordered. F/C present draining clear urine 700cc at end of shift. Wound care rendered, repositioned every 2 hours and PRN. AM/PM care rendered. 2 moderate BM noted during shift. Right IJ TL with clean dressing, flushing well. Bilateral wrist restraints renewed since patient tends to remove her lines unintentionally during sleep. Safety precautions implemented, bed locked in lowest position, call light within reach.
--- NOTE | 2021-08-02 19:05 | NUR ---
RECEIVED PT AWAKE ON BED A/O X1 TALKING BUT UNCOMPREHENDSABLE ON ROOM AIR SPO2 99% NO SIGN OF RESPIRATORY DISTRESS, BEDSIDE MONITOR READS SINUS TACHY 100'S HAVE RIJ 3L CATH DRESSING MARY DRY AND INTACT HAVE COELLO CATHETER WITH YELLOW URINE DRAINING VIA GRAVITY, HAVE GTUBE FEEEDING WIT ONGOING JEVITY @ 50ML/HR RESIDUAL 10ML, BED ON LOWEST POSITION AND LOCKED SIDE RAILS UP X2 CALL LIGHT WITHIN REACH WILL CONT TO MONITOR
--- NOTE | 2021-08-02 20:45 | NUR ---
REPORT GIVEN TO JIMMIE MONSIVAIS FOR MAVERICK
--- NOTE | 2021-08-02 21:00 | NUR ---
TRANSFER PT TO ROOM 308 VIA CLS PROTOCOL, PT IS A/O X1 SPO2 97% VIA ROOM AIR, NO SIGN OF RESPIRATORY DISTRESS, WITH ONGOING MERREM @ 25ML/HR INFUING VIA RIJ 3L CATHETER, BED ON LOWEST POSITION AND LOCKED SIDE RAILS UP PERSONNEL COORDINATOR @ BEDSIDE
--- NOTE | 2021-08-02 21:10 | NUR ---
STITCH WHEELER NOTES RECEIVED PATIENT, VERBAL BUT INCOHERENT WITH WORDS. NO S/S OF APPARENT DISTRESS. NOT EXHIBITING PAIN VIA FLACC. MERREM ANTIBIOTICS STILL RUNNING WHEN BROUGHT UP HERE IN THE UNIT -- STARTED IN THE ICU. TELE MONITOR READING SINUS TACHY 101. G-TUBE IN PLACE WITH JEVITY @ 50CC/ML RUNNING AT THIS TIME. ABDOMINAL BINDER ON. COELLO DRAINING CLEAR YELLOW URINE. V/S FOLLOWS: BP: 127/71, HR-98, T-98.7, RR-20, SATURATION 100%.
[2021-08-03 04:26] VITALS: BP 124/94
[2021-08-03] MEDS: HYDROCORTISONE SOD SUCCINATE 100 MG/2 ML VIAL IV SCH ×4 (05:07→10:18)
--- NOTE | 2021-08-03 06:51 | NUR ---
YARD LABOR SUPERVISOR NOTE PATIENT IN BED WITH EYES CLOSED, EASY TO AROUSE. INCOHERENT WITH WORDS. NO S/S OF APPARENT DISTRESS. NOT EXHIBITING PAIN VIA FLACC. NO FLUIDS RUNNNING AT THIS TIME. TELE MONITOR READING SINUS TACHY. G-TUBE RUNNING JEVITY 1.2 @50CC/HRTOLERATING. FREE FLUSHED Q6 HOURS. ALL NEEDS ATTENDED. COELLO DRAINING CLEAR YELLOW URINE. SAFETY KEPT IN PLACE THE WHOLE SHIFT. WILL ENDORSE CARE TO MORNING SHIFT RN FOR CONT. OF CARE.
--- NOTE | 2021-08-03 07:30 | NUR ---
SCHOOL TRANSPORTATION DIRECTOR NOTES PT IN BED, AWAKE, CONFUSED, NO SIGN OF PAIN, NO FACIAL GRIMACING, NOT IN DISTRESS, GT FEEDING INFUSING WELL, KEPT HOB ELEVATED, KEPT WARM AND COMFORTABLE IN BED.
[2021-08-03 08:00] VITALS: BP 107/62
[2021-08-03] MEDS: PANTOPRAZOLE 40 MG/PACK PACK GT SCH (08:23)
[2021-08-03 12:00] VITALS: BP 115/58
--- NOTE | 2021-08-03 15:00 | NUR ---
DRAW END HAND NOTES PT IN BED, AWAKE, VERBALLY RESPONSIVE, WITH CONFUSION, NO SIGN OF PAIN OR DISTRESS, SEEN BY DR. PATTEN TODAY, DISCHARGE ORDER GIVEN, DISCHARGE AND MEDICATION INSTRUCTIONS PROVIDED TO ADMITTING NURSE TACOS MONSIVAIS AT [facility] [place] [facility] BELONGINGS ACCOUNTED FOR, WOUND PHOTOS DONE, CENTRAL LINE REMOVED, PICKED UP BY 2 AMBULANCE PERSONNEL, LEFT VIA GUERNEY IN STABLE CONDITION.
== END 2021-08-03 15:05 | DRG 871 ==
LOC: ER 08:44 → ICU 13:37 → TELE 08-02 20:57
PROVIDERS: ATTEND Internal Medicine
PROC: 30233N1 Transfusion of Nonautologous Red Blood Cells into Peripheral Vein, Percutaneous Approach (ICD-10-PCS; principal; 2021-07-30)
DX: A41.9 Sepsis, unspecified organism (principal); N17.0 Acute kidney failure with tubular necrosis; R53.2 Functional quadriplegia; R65.21 Severe sepsis with septic shock; J96.01 Acute respiratory failure with hypoxia; G92.8 Other toxic encephalopathy; J18.9 Pneumonia, unspecified organism; E43 Unspecified severe protein-calorie malnutrition; I21.A1 Myocardial infarction type 2; N39.0 Urinary tract infection, site not specified; J44.0 Chronic obstructive pulmonary disease with (acute) lower respiratory infection; E27.40 Unspecified adrenocortical insufficiency; E87.2 Acidosis; Z16.12 Extended spectrum beta lactamase (ESBL) resistance; E87.0 Hyperosmolality and hypernatremia; N18.9 Chronic kidney disease, unspecified; K21.9 Gastro-esophageal reflux disease without esophagitis; Z20.822 Contact with and (suspected) exposure to COVID-19; B96.20 Unspecified Escherichia coli [E. coli] as the cause of diseases classified elsewhere; E78.5 Hyperlipidemia, unspecified; F25.9 Schizoaffective disorder, unspecified; G30.9 Alzheimer's disease, unspecified; F02.80 Dementia in other diseases classified elsewhere, unspecified severity, without behavioral disturbance, psychotic disturbance, mood disturbance, and anxiety; Z79.51 Long term (current) use of inhaled steroids; Z79.899 Other long term (current) drug therapy; I12.9 Hypertensive chronic kidney disease with stage 1 through stage 4 chronic kidney disease, or unspecified chronic kidney disease; D53.9 Nutritional anemia, unspecified; R74.8 Abnormal levels of other serum enzymes; E87.8 Other disorders of electrolyte and fluid balance, not elsewhere classified; R13.10 Dysphagia, unspecified; Z93.1 Gastrostomy status; E83.51 Hypocalcemia; E87.6 Hypokalemia; F09 Unspecified mental disorder due to known physiological condition; L89.896 Pressure-induced deep tissue damage of other site; L89.616 Pressure-induced deep tissue damage of right heel; M62.562 Muscle wasting and atrophy, not elsewhere classified, left lower leg; M62.561 Muscle wasting and atrophy, not elsewhere classified, right lower leg; I70.0 Atherosclerosis of aorta; E86.0 Dehydration; S90.821A Blister (nonthermal), right foot, initial encounter; X58.XXXA Exposure to other specified factors, initial encounter; Y92.9 Unspecified place or not applicable
CPT/HCPCS: 36415; 36600; 71045-TC; 76770-TC; 80048-TC; 80053-TC; 80061-TC; 80076-TC; 80164-TC; 80202-TC; 81001; 82533; 82550-TC; 82553; 82728-TC; 83605-TC; 83615-TC; 83735-TC; 83880; 84100-TC; 84443-TC; 84484-TC; 85025-TC; 85378-TC; 85730-TC; 86140-TC; 86803; 86850-TC; 87040-TC; 87081-TC; 87086-TC; 87186-TC; 87806; 93307-TC; A9563; C9113; G0378; J1650; J1720; J2185; J2370; J2543; J3370; J3480; J3490; J7030; J7042; J7050; J7060; J7070; P9016; U0003

== ENCOUNTER 2023-09-29 17:13 | Emergency (ER) | payer MEDICARE, OTHER ==
[~2023-09-29] VITALS: Ht 149.9 cm; Wt 41.7 kg
[~2023-09-29 17:13] MED LIST: ACET-868 GT; ALBU2.5V38 IH; ASCO-352 GT; ATOR10TA GT; BISA10SU11 RC; CHOL100062 PO; DOCU250C14 GT; FLUT16SP; IPRA0.2S9 IH; LANS30CA56 GT; LORA10TA7 GT; MAG30ORA GT; MAGN400O6 GT; MEMA10TA GT; MULT-447 GT; NUT.237L67 GT; QUET25TA GT; VALP250S4 GT
[2023-09-29 19:10] LABS: BASOPHILS % (AUTO) 0.4 % (0.0-2.0); EOSINOPHILS # (AUTO) 0.4 K/uL (0.0-0.7); EOSINOPHILS % (AUTO) 3.9 % (0.0-6.0); HEMATOCRIT 38 % (33-45); HEMOGLOBIN 12.5 g/dL (11.5-14.8); LYMPHOCYTES # (AUTO) 2.5 K/uL (0.8-4.8); LYMPHOCYTES % (AUTO) 27.4 % (20.0-44.0); MEAN CORPUSCULAR HEMOGLOBIN 28 PG (26.0-33.0); MEAN CORPUSCULAR HGB CONC 33 g/dl (31.0-36.0); MEAN CORPUSCULAR VOLUME 84 fL (82-100); MONOCYTES # (AUTO) 0.6 K/uL (0.1-1.30); MONOCYTES % (AUTO) 6.4 % (2.0-12.0); NEUTROPHILS # (AUTO) 5.6 K/uL (1.8-8.9); NEUTROPHILS % (AUTO) 61.9 % (43.0-81.0); PLATELET COUNT (AUTO) 384 K/uL (150-450); RED BLOOD CELL COUNT(AUTO) 4.51 MIL/uL (4.0-5.2); RED CELL DISTRIBUTION WIDTH 15.2 % (11.5-15.0)
[2023-09-29 19:11] LABS: OCCULT BLOOD STOOL NEGATIVE (NEGATIVE)
[2023-09-29 19:21] LABS: INR 0.98 (0.91-1.10); PARTIAL THROMBOPLASTIN TIME 29.3 SEC (24.3-34.3); PROTHROMBIN TIME 10.4 SECS (9.2-11.1)
[2023-09-29 19:22] LABS: CALCIUM, SERUM 9.2 mg/dL (8.5-10.1); CREATININE 0.9 mg/dL (0.6-1.3); POTASSIUM 3.8 mmol/L (3.5-5.1)
[2023-09-29 19:28] LABS: ALBUMIN 2.9 g/dL (3.4-5.0); BILIRUBIN,DIRECT 0.1 mg/dL (0.0-0.2); BILIRUBIN,TOTAL 0.4 mg/dL (0.2-1.0)
[2023-09-29 19:30] LABS: LACTIC ACID 0.9 mmol/L (0.4-2.0)
[2023-09-29] MEDS ORDERED: IV NS 0.9% 250 ML IV ONE (20:00)
[2023-09-29] MEDS ORDERED: IOHEXOL-350 100 ML VIAL IV ONE (20:00)
[2023-09-29] MEDS ORDERED: CT SWABBABLE VALVE TRANS SET 1 EA INFUS.SET MC ONE (20:00)
[2023-09-30 01:46] VITALS: BP 164/55; TEMP 98.2; O2SAT 98
== END 2023-09-30 01:46 ==
LOC: ER 17:13
DX: K92.1 Melena (principal); F03.90 Unspecified dementia, unspecified severity, without behavioral disturbance, psychotic disturbance, mood disturbance, and anxiety; I10 Essential (primary) hypertension; F20.9 Schizophrenia, unspecified; F31.9 Bipolar disorder, unspecified; D64.9 Anemia, unspecified; Z79.899 Other long term (current) drug therapy
CPT/HCPCS: 99285; 74174; 76705; 85025; 80048; 87040 ×2; 83605; 83690; 80076; 82272; 36415; 85730; 86850; J7050; Q9967

== ENCOUNTER 2023-12-06 12:18 | Emergency (ER) | payer MEDICARE, OTHER ==
[~2023-12-06] VITALS: Ht 154.9 cm; Wt 59.9 kg
[2023-12-06] MEDS ORDERED: LIDOCAINE 2%-EPI 1:100,000 30 ML VIAL ONE (13:25)
[2023-12-06 16:11] VITALS: BP 126/81; TEMP 97.9; O2SAT 96
== END 2023-12-06 16:11 | disposition home or self-care (01) ==
LOC: ER 12:20
DX: S00.03XA Contusion of scalp, initial encounter (principal); G30.9 Alzheimer's disease, unspecified; F02.80 Dementia in other diseases classified elsewhere, unspecified severity, without behavioral disturbance, psychotic disturbance, mood disturbance, and anxiety; F32.9 Major depressive disorder, single episode, unspecified; F20.9 Schizophrenia, unspecified; Z79.899 Other long term (current) drug therapy; W06.XXXA Fall from bed, initial encounter; Y93.89 Activity, other specified; Y92.89 Other specified places as the place of occurrence of the external cause; Y99.8 Other external cause status
CPT/HCPCS: 99284; 72125; 70450; A6403; J3490

== ENCOUNTER 2023-12-09 19:12 | Emergency (ER) | payer MEDICARE, OTHER ==
[~2023-12-09] VITALS: Ht 154.9 cm; Wt 59.9 kg
[2023-12-09] MEDS: CEPHALEXIN MONOHYDRATE 500 MG CAPSULE PO ONE (19:30)
[2023-12-09] MEDS ORDERED: CEPHALEXIN MONOHYDRATE 500 MG CAPSULE PO ONE (19:34)
[2023-12-09] MEDS ORDERED: CEPH500C2 PO (19:57)
[2023-12-09 21:24] VITALS: BP 140/76; TEMP 98; O2SAT 97
== END 2023-12-09 21:29 ==
LOC: ER 19:15
DX: S00.03XA Contusion of scalp, initial encounter (principal); G30.9 Alzheimer's disease, unspecified; F02.80 Dementia in other diseases classified elsewhere, unspecified severity, without behavioral disturbance, psychotic disturbance, mood disturbance, and anxiety; I95.9 Hypotension, unspecified; K21.9 Gastro-esophageal reflux disease without esophagitis; F32.9 Major depressive disorder, single episode, unspecified; F20.9 Schizophrenia, unspecified; Z87.440 Personal history of urinary (tract) infections; Z90.710 Acquired absence of both cervix and uterus; Z79.899 Other long term (current) drug therapy; W01.0XXA Fall on same level from slipping, tripping and stumbling without subsequent striking against object, initial encounter; Y93.89 Activity, other specified; Y92.89 Other specified places as the place of occurrence of the external cause; Y99.8 Other external cause status